=== PATIENT | female | born 1960 | race Caucasian/White ===

== ENCOUNTER → 2016-05-19 | Outpatient (CLI) | payer MEDICARE ==
[~2016-05-19] MED LIST: AMITRIPTYLINE H25 MG PO; CYCLOBENZAPRINE10 MG PO; HYDROXYZINE HCL25 MG PO; IMITREX50 MG PO; IMITREX6 MG/0.52 SQ; LIDOCAINE700 MG TD; MEDROL DOSEPAK4 MG PO; ONDANSETRON HCL4 MG PO; SUMATRIPTA6 MG/0.52 SC; SUMATRIPTAN SUC50 MG PO; TOPIRAMATE25 MG PO; VENTOLIN HFA18 GM IH; ZOLPIDEM TARTRAT5 MG PO
== END | disposition home or self-care (01) ==
LOC: RAD 12:47 → EDSTATUS 13:15 → RAD 13:15
DX: J90 Pleural effusion, not elsewhere classified (principal); Z53.09 Procedure and treatment not carried out because of other contraindication
CPT/HCPCS: 76604